=== PATIENT | female | born 1995 | race Two or more races ===

== ENCOUNTER 2019-12-13 15:05 | Emergency (ER) | payer OTHER ==
[~2019-12-13] VITALS: Ht 157.5 cm; Wt 61.7 kg
[2019-12-13 16:16] VITALS: BP 121/65
[2019-12-13] MEDS ORDERED: FAMOTIDINE 20 MG TABLET PO ONE (16:30)
[2019-12-13] MEDS ORDERED: ONDANSETRON ODT 4 MG PO ONE (16:30)
[2019-12-13] MEDS ORDERED: MAALOX/HYOSCYAMINE/LIDOCAINE 45 ML BTL PO ONE (16:30)
--- NOTE | 2019-12-13 17:36 | NUR ---
MANAGER PATHOLOGY: AMBULATORY WITH STEADY GAIT TO ROOM AT THIS TIME. MARÍA
[2019-12-13] MEDS ORDERED: ONDANSETRON ODT 4 MG ONE (17:54)
[2019-12-13] MEDS ORDERED: FAMOTIDINE 20 MG TABLET ONE (17:54)
[2019-12-13] MEDS ORDERED: MAALOX/HYOSCYAMINE/LIDOCAINE 45 ML BTL ONE (17:54)
== END 2019-12-13 18:45 | disposition home or self-care (01) ==
LOC: ED 18:22
DX: R11.2 Nausea with vomiting, unspecified (principal); R10.13 Epigastric pain; R94.31 Abnormal electrocardiogram [ECG] [EKG]
CPT/HCPCS: 93005; 99284; Q0162